=== PATIENT | male | born 1965 | race African-American/Black ===

== ENCOUNTER 2016-07-18 15:45 | Emergency (ER) | payer OTHER ==
[~2016-07-18] VITALS: Ht 175.3 cm; Wt 86.2 kg
[~2016-07-18 15:45] MED LIST: ANALGESIC325 MG PO; KEPPRA XR500 MG PO; VICODIN 5-5001 EACH PO
[2016-07-18 15:46] VITALS: BP 148/88
[2016-07-18] MEDS ORDERED: HYDROCODONE-AP1 EAC6 PO (16:06)
[2016-07-18] MEDS ORDERED: NAPROSYN500 MG PO (16:06)
[2016-09-01] MEDS ORDERED: EYE DROP15 ML OP (13:46)
[2016-09-01] MEDS ORDERED: AFRIN15 ML NS (14:04)
[2016-09-01] MEDS ORDERED: TESSALON PERLE100 MG PO (14:05)
== END 2016-07-18 16:31 | disposition home or self-care (01) ==
LOC: ER 15:45
DX: K02.9 Dental caries, unspecified (principal); Z98.890 Other specified postprocedural states